=== PATIENT | female | born 1965 | race Caucasian/White ===

== ENCOUNTER 2024-01-03 08:37 | Day surgery (SDC) | payer OTHER ==
[~2024-01-03] VITALS: Ht 157.5 cm; Wt 84.8 kg
[2024-01-03] MEDS ORDERED: MIDAZOLAM HCL 5 MG/5 ML VIAL ONE (10:41)
[2024-01-03] MEDS ORDERED: MEPERIDINE 100 MG INJ. 100 MG/ML VIAL ONE (10:41)
[2024-01-03 12:41] VITALS: O2SAT 97
[2024-01-03 15:21] VITALS: BP_SYST 123; PULSE 59; RESP 16
== END 2024-01-03 12:05 | disposition home or self-care (01) ==
LOC: SDS 08:37 → SMU 08:41 → SDS 12:05
PROVIDERS: ATTEND Internal Medicine
DX: Z12.11 Encounter for screening for malignant neoplasm of colon (principal); D12.3 Benign neoplasm of transverse colon; K57.30 Diverticulosis of large intestine without perforation or abscess without bleeding; K64.8 Other hemorrhoids; Z90.710 Acquired absence of both cervix and uterus; Z79.899 Other long term (current) drug therapy
CPT/HCPCS: 45380; 45385; 88305; 99152; G0378; J2250; J2175